=== PATIENT | female | born 1960 | race Caucasian/White ===

== ENCOUNTER 2022-12-10 14:05 | Inpatient (IN) | payer BC ==
[2022-12-10 15:17] LABS: ALBUMIN 3.2 g/dl (3.4-5.0); BILIRUBIN,TOTAL 1.1 mg/dl (0.2-1); CREATININE 0.6 mg/dl (0.55-1.3); TOT PROT 6.2 g/dl (6.4-8.2)
[2022-12-10 15:20] LABS: HEMATOCRIT 32.9 % (32.4-45.2); HEMOGLOBIN 11.4 G/dL (10.7-15.3); MCH 31.5 pg (25.7-33.7); MCHC 34.7 g/dl (32.0-36.0); MEAN CELL VOLUME 90.8 fl (80-96); MEAN PLT VOLUME 9.8 fl (7.5-11.1); PLATELET COUNT 209.5 10^3/uL (134-434); RBC 3.62 10^6/uL (3.60-5.2); RDW 14.4 % (11.6-15.6)
[2022-12-10 15:45] LABS: PLATELET ESTIMATE ADEQUATE
[2022-12-10] MEDS ORDERED: ALBUTEROL SO4 HFA INHALER IH ONE ×2 (16:23→16:27)
[2022-12-10] MEDS ORDERED: SIMETHICONE 80 MG TAB.CHEW (FP) PO ONE (16:31)
[2022-12-10] MEDS ORDERED: SODIUM CHLORIDE 0.9% 1000 ML INFUS.BAG IV ONE (16:32)
[2022-12-10] MEDS ORDERED: SIMETHICONE 80 MG TAB.CHEW (FP) ONE (16:37)
[2022-12-10 18:40] LABS: CALCIUM 8.4 mg/dl (8.5-10); CREATININE 0.5 mg/dl (0.55-1.3)
[2022-12-10] MEDS ORDERED: ACETAMINOPHEN INJECTION 100 ML IVPB ONE (20:42)
[2022-12-10] MEDS ORDERED: ACETAMINOPHEN 1000 MG/100 ML BAG IVPB ONE (20:42)
[2022-12-10 22:29] VITALS: BMI 19.5
[2022-12-11] MEDS ORDERED: SODIUM CHLORIDE 1,000 ML IV SCH ×2 (02:15→10:21)
[2022-12-11 09:01] LABS: CALCIUM 8.2 mg/dl (8.5-10); CREATININE 0.4 mg/dl (0.55-1.3)
[2022-12-11 09:36] LABS: BASO % 0.1 % (0-2.0); HEMATOCRIT 27.2 % (32.4-45.2); HEMOGLOBIN 9.4 GM/dL (10.7-15.3); LYMPH % 10.9 % (8-40); MCH 30.8 pg (25.7-33.7); MCHC 34.6 g/dl (32.0-36.0); MEAN CELL VOLUME 89.1 fl (80-96); MEAN PLT VOLUME 9.5 fl (7.5-11.1); MONO % 13.1 % (3.8-10.2); NEUT % 73.9 % (42.8-82.8); PLATELET COUNT 188 10^3/uL (134-434); RBC 3.05 M/mm3 (3.60-5.2); RDW 14.4 % (11.6-15.6); WHITE BLOOD COUNT 5.1 K/mm3 (4.0-10.0)
[2022-12-11 10:08] LABS: EPITHELIAL CELLS FEW /hpf
[2022-12-11] MEDS ORDERED: SODIUM CHLORIDE 500 ML IV STA (10:20)
[2022-12-11] MEDS ORDERED: POTASSIUM CHLORIDE TABS 10 MEQ TABLET.ER (FP) PO ONE (10:45)
[2022-12-11] MEDS: POTASSIUM CHLORIDE 40 MEQ in SODIUM CHLORIDE 1,000 ML IV SCH ×2 (10:49→22:03)
[2022-12-11] MEDS ORDERED: PEG 3350/NA SULF BICARB CL/KCL 4000 ML SOLN.RECON PO ONE (14:00)
[2022-12-11 14:30] LABS: CALCIUM 7.9 mg/dl (8.5-10); CREATININE 0.5 mg/dl (0.55-1.3)
[2022-12-12] MEDS: POTASSIUM CHLORIDE 40 MEQ in SODIUM CHLORIDE 1,000 ML IV SCH ×2 (06:20→10:46)
[2022-12-12] MEDS ORDERED: POLYETHYLENE GLYCOL (HEALTHYLAX) 3350 17 GM PACKET PO SCH (10:00)
[2022-12-12 10:03] LABS: ALBUMIN 2.9 g/dl (3.4-5.0); CALCIUM 7.9 mg/dl (8.5-10); CREATININE 0.4 mg/dl (0.55-1.3)
[2022-12-12 10:08] LABS: HEMATOCRIT 30.8 % (32.4-45.2); HEMOGLOBIN 10.8 G/dL (10.7-15.3); MCH 31.7 pg (25.7-33.7); MCHC 35.1 g/dl (32.0-36.0); MEAN CELL VOLUME 90.3 fl (80-96); MEAN PLT VOLUME 8.1 fl (7.5-11.1); PLATELET COUNT 241.2 10^3/uL (134-434); RBC 3.41 10^6/uL (3.60-5.2); RDW 15.7 % (11.6-15.6); WHITE BLOOD COUNT 5.8 10^3/uL (4.0-10.8)
[2022-12-12 11:04] LABS: PLATELET ESTIMATE ADEQUATE
[2022-12-12 19:33] VITALS: RESP 16
[2022-12-13] MEDS: POTASSIUM CHLORIDE 40 MEQ in SODIUM CHLORIDE 1,000 ML IV SCH (00:01)
[2022-12-13 10:21] VITALS: BP 113/75; PULSE 68; TEMP 98.2
== END 2022-12-13 11:14 | disposition home or self-care (01) | DRG 389 ==
LOC: FER 14:05 → FM/S 19:53 → OBSVTOIN 12-12 15:29
PROVIDERS: ADMIT Internal Medicine
DX: K56.41 Fecal impaction (principal); E87.1 Hypo-osmolality and hyponatremia; E78.5 Hyperlipidemia, unspecified; E87.6 Hypokalemia
CPT/HCPCS: 0241U-QW; 36415; 71045-TC-FY; 74177-TC; 76705-TC; 80048; 80053; 81003; 81015; 82436; 82533; 83605; 83690; 83930; 83935; 84133; 84300; 84443; 85025; 85027; 86850; 86900; 86901; 87040; 93005; 93010; 99285-25; G0378; Q9967

== ENCOUNTER 2023-01-13 13:54 | Inpatient (IN) | payer BC ==
[2023-01-13] MEDS ORDERED: SODIUM CHLORIDE 1,000 ML IV STA (14:23)
[2023-01-13] MEDS ORDERED: ACETAMINOPHEN 1000 MG/100 ML BAG IVPB ONE (14:23)
[2023-01-13] MEDS ORDERED: ACETAMINOPHEN INJECTION 100 ML IVPB ONE (15:04)
[2023-01-13 15:47] LABS: HEMOGLOBIN 11.3 G/dL (10.7-15.3); MCH 29.7 pg (25.7-33.7); MCHC 33.2 g/dl (32.0-36.0); MEAN CELL VOLUME 89.6 fl (80-96); MEAN PLT VOLUME 10.9 fl (7.5-11.1); PLATELET COUNT 180.2 10^3/uL (134-434); RDW 16.4 % (11.6-15.6); WHITE BLOOD COUNT 7.5 10^3/uL (4.0-10.8)
[2023-01-13 16:17] LABS: ALBUMIN 2.6 g/dl (3.4-5.0); BILIRUBIN,TOTAL 0.5 mg/dl (0.2-1); CALCIUM 7.8 mg/dl (8.5-10); CREATININE 0.4 mg/dl (0.55-1.3); TOT PROT 5.5 g/dl (6.4-8.2)
[2023-01-13 17:24] LABS: PLATELET ESTIMATE ADEQUATE
[2023-01-13 17:44] LABS: LACTIC ACID 2.1 mmol/L (0.4-2.0)
[2023-01-13] MEDS ORDERED: SODIUM CHLORIDE 1,000 ML IV ONE (19:36)
[2023-01-13] MEDS ORDERED: morphine CARPU-JECT 2 MG/1 ML DISP.SYRIN IVPUSH ONE (19:36)
[2023-01-13 20:15] LABS: INR 1.22 (0.83-1.09); PROTHROMBIN TIME (PATIENT) 14.1 SEC (9.7-13.0)
[2023-01-13] MEDS ORDERED: PROPOFOL 20 ML ONE (20:38)
[2023-01-13] MEDS ORDERED: ROCURONIUM BROMIDE 50 MG/5 ML SYRINGE ONE (20:39)
[2023-01-13] MEDS ORDERED: ONDANSETRON 4 MG/2 ML VIAL ONE (20:39)
[2023-01-13] MEDS ORDERED: LIDOCAINE HCL/PF 2% SDV 5ML VIAL ONE (20:39)
[2023-01-13] MEDS ORDERED: DEXAMETHASONE SOD PHOSPHATE 4 MG/1 ML VIAL ONE (20:39)
[2023-01-13] MEDS ORDERED: MIDAZOLAM HCL 2 MG/2 ML SINGLE DOSE VIAL ONE (20:39)
[2023-01-13] MEDS ORDERED: KETAMINE HCL 500 MG/10 ML VIAL ONE (20:39)
[2023-01-13] MEDS ORDERED: SEVOFLURANE 250 ML BTL ONE (20:48)
[2023-01-13] MEDS ORDERED: cefOXitin SODIUM 1 GM VIAL (RESTRICTED TO ID) IVPB ONE (21:45)
[2023-01-13] MEDS ORDERED: cefOXitin SODIUM 2 GM VIAL (RESTRICTED TO ID) IVPB ONE ×2 (21:45)
[2023-01-13] MEDS ORDERED: HYDROmorphone HCl 2 MG/ML VIAL ONE (23:21)
[2023-01-13] MEDS ORDERED: SUGAMMADEX SODIUM 200 MG/2 ML VIAL ONE (23:28)
[2023-01-14] MEDS ORDERED: ONDANSETRON 4 MG/2 ML VIAL IVPUSH PRN ×2 (00:22→00:47)
[2023-01-14] MEDS ORDERED: PROMETHAZINE HCL 25 MG/1 ML VIAL IVPB PRN ×2 (00:22→00:47)
[2023-01-14] MEDS ORDERED: LACTATED RINGERS SOLUTION 1,000 ML IV SCH (00:30)
[2023-01-14] MEDS ORDERED: HYDROmorphone *PCA* 10MG/50ML DISP.SYRIN PCA SCH (00:30)
[2023-01-14] MEDS ORDERED: FENTANYL CITRATE/PF 50 MCG/ML VIAL IVPUSH PRN (00:44)
[2023-01-14] MEDS: ACETAMINOPHEN 1000 MG/100 ML BAG IVPB SCH ×3 (01:21→16:47)
[2023-01-14] MEDS: IBUPROFEN 800 MG/8 ML IJ IVPB SCH ×3 (01:38→16:47)
[2023-01-14] MEDS: LACTATED RINGERS SOLUTION 1,000 ML IV SCH ×4 (01:50→23:44)
[2023-01-14] MEDS: PIPERACILLIN/TAZOB 2.25 GM 2.25 GM in DEXTROSE 5%-WATER - 50 ML IVPB SCH ×2 (05:36→09:27)
[2023-01-14 06:10] VITALS: BMI 18.3
[2023-01-14 09:26] LABS: HEMATOCRIT 27.8 % (32.4-45.2); HEMOGLOBIN 9.5 GM/dL (10.7-15.3); MCH 29.7 pg (25.7-33.7); MEAN CELL VOLUME 87.4 fl (80-96); PLATELET COUNT 234 10^3/uL (134-434); RBC 3.18 M/mm3 (3.60-5.2); RDW 15.6 % (11.6-15.6); WHITE BLOOD COUNT 6.7 K/mm3 (4.0-10.0)
[2023-01-14] MEDS: EZETIMIBE 10 MG TABLET (FP) PO SCH (09:27)
[2023-01-14] MEDS: HYDROmorphone *PCA* 10MG/50ML DISP.SYRIN PCA SCH (09:27)
[2023-01-14 09:56] LABS: ANISOCYTOSIS 0; HELMET CELLS 0; HOWELL-JOLLY BODIES 0; MACROCYTOSIS 0; OVALOCYTE 0; ROULEAU 0; SICKELED CELLS 0; TARGET CELLS 0; TEAR DROP CELLS 0; TOXIC GRANULATION 0
[2023-01-14 10:05] LABS: BLOOD UREA NITROGEN 16.8 mg/dL (7-18); CALCIUM 7.8 mg/dL (8.5-10.1); MAGNESIUM 1.8 mg/dL (1.8-2.4)
[2023-01-14 10:08] LABS: CREATININE 0.3 mg/dL (0.55-1.3); PHOSPHOROUS 3.3 mg/dL (2.5-4.9)
[2023-01-14] MEDS: CEFTRIAXONE 2 GM in DEXTROSE 5%-WATER 100 ML IVPB SCH (16:48)
[2023-01-14] MEDS: ATORVASTATIN CA 20 MG TABLET (FP) PO SCH (22:01)
[2023-01-15] MEDS: IBUPROFEN 800 MG/8 ML IJ IVPB SCH ×3 (01:01→16:32)
[2023-01-15] MEDS: LACTATED RINGERS SOLUTION 1,000 ML IV SCH ×4 (01:07→23:13)
[2023-01-15] MEDS: HYDROmorphone *PCA* 10MG/50ML DISP.SYRIN PCA SCH (01:08)
[2023-01-15] MEDS: ACETAMINOPHEN 1000 MG/100 ML BAG IVPB SCH ×3 (01:29→16:32)
[2023-01-15 09:20] LABS: BASO % 0.2 % (0-2.0); EOS % 0.7 % (0-4.5); HEMATOCRIT 23.6 % (32.4-45.2); LYMPH % 6.1 % (8-40); MCH 29.6 pg (25.7-33.7); MCHC 33.8 g/dl (32.0-36.0); MEAN CELL VOLUME 87.5 fl (80-96); MEAN PLT VOLUME 7.9 fl (7.5-11.1); MONO % 6.1 % (3.8-10.2); NEUT % 86.9 % (42.8-82.8); PLATELET COUNT 228 10^3/uL (134-434); RDW 15.6 % (11.6-15.6); WHITE BLOOD COUNT 6.3 K/mm3 (4.0-10.0)
[2023-01-15 09:48] LABS: BLOOD UREA NITROGEN 14.5 mg/dL (7-18); CALCIUM 7.8 mg/dL (8.5-10.1); MAGNESIUM 1.8 mg/dL (1.8-2.4)
[2023-01-15 09:52] LABS: PHOSPHOROUS 1.6 mg/dL (2.5-4.9)
[2023-01-15 09:53] LABS: CREATININE 0.3 mg/dL (0.55-1.3)
[2023-01-15] MEDS ORDERED: CEFTRIAXONE 1 GM in DEXTROSE 5%-WATER - 50 ML IVPB SCH (10:00)
[2023-01-15 10:20] LABS: ALBUMIN 1.8 g/dl (3.4-5.0); TOT PROT 4.5 g/dl (6.4-8.2)
[2023-01-15] MEDS: CEFTRIAXONE 2 GM in DEXTROSE 5%-WATER 100 ML IVPB SCH (10:20)
[2023-01-15] MEDS: EZETIMIBE 10 MG TABLET (FP) PO SCH (10:22)
[2023-01-15] MEDS ORDERED: oxyCODONE HCL 5 MG TABLET PO PRN ×2 (12:26→12:43)
[2023-01-15] MEDS: FERROUS SO4 325 MG TABLET (FP) PO SCH (12:41)
[2023-01-15] MEDS: ENOXAPARIN NA (PORCINE) 30 MG/0.3 ML DISP.SYRIN SQ SCH (12:41)
[2023-01-15] MEDS: NAPH,MB-DB/K PH,MBDB POWDER PACKET PO SCH ×2 (12:41→21:31)
[2023-01-15 19:41] LABS: EPI CELLS >36 /uL (0-25.1); HYALINE CASTS 8 /uL (0-3.1); URINE APPEARANCE CLEAR; URINE BILIRUBIN NEGATIVE (NEGATIVE); URINE COLOR DK YELLOW; URINE GLUCOSE (UA) NEGATIVE (NEGATIVE); URINE KETONE TRACE (NEGATIVE); URINE LEUK ESTERASE NEGATIVE (NEGATIVE); URINE NITRITE POSITIVE (NEGATIVE); URINE PROTEIN 2+ (NEGATIVE); URINE RBC 93 /uL (0-23.9)
[2023-01-15 19:55] LABS: URINE BACTERIA 6.6 /uL (0-1359); URINE WBC 58.1 /uL (0-25.8)
[2023-01-15 20:33] LABS: HEMATOCRIT 25.3 % (32.4-45.2); HEMOGLOBIN 8.5 GM/dL (10.7-15.3); MCH 29.7 pg (25.7-33.7); MCHC 33.5 g/dl (32.0-36.0); MEAN CELL VOLUME 88.7 fl (80-96); MEAN PLT VOLUME 8.9 fl (7.5-11.1); PLATELET COUNT 238 10^3/uL (134-434); RBC 2.86 M/mm3 (3.60-5.2); RDW 15.9 % (11.6-15.6); WHITE BLOOD COUNT 7.1 K/mm3 (4.0-10.0)
[2023-01-15] MEDS: ATORVASTATIN CA 20 MG TABLET (FP) PO SCH (21:31)
[2023-01-16] MEDS: oxyCODONE HCL 5 MG TABLET PO PRN ×2 (02:57→23:33)
[2023-01-16] MEDS: LACTATED RINGERS SOLUTION 1,000 ML IV SCH (03:04)
[2023-01-16] MEDS ORDERED: POLYETHYLENE GLYCOL (HEALTHYLAX) 3350 17 GM PACKET PO SCH (08:00)
[2023-01-16 08:09] LABS: CARCINOEMBRYONIC ANTIGEN 1.8 ng/mL (0.0-4.7)
[2023-01-16] MEDS: FAMOTIDINE 20 MG TABLET PO SCH (09:24)
[2023-01-16] MEDS: NAPH,MB-DB/K PH,MBDB POWDER PACKET PO SCH ×2 (09:24→22:56)
[2023-01-16] MEDS: EZETIMIBE 10 MG TABLET (FP) PO SCH (09:24)
[2023-01-16] MEDS: ENOXAPARIN NA (PORCINE) 30 MG/0.3 ML DISP.SYRIN SQ SCH (09:24)
[2023-01-16] MEDS: FERROUS SO4 325 MG TABLET (FP) PO SCH (09:24)
[2023-01-16] MEDS: CEFTRIAXONE 2 GM in DEXTROSE 5%-WATER 100 ML IVPB SCH (09:25)
[2023-01-16 10:10] LABS: BASO % 0.4 % (0-2.0); EOS % 0.6 % (0-4.5); HEMATOCRIT 25.9 % (32.4-45.2); HEMOGLOBIN 8.9 GM/dL (10.7-15.3); LYMPH % 6.4 % (8-40); MCH 30.1 pg (25.7-33.7); MCHC 34.4 g/dl (32.0-36.0); MEAN CELL VOLUME 87.3 fl (80-96); MEAN PLT VOLUME 7.4 fl (7.5-11.1); MONO % 4.7 % (3.8-10.2); NEUT % 87.9 % (42.8-82.8); PLATELET COUNT 276 10^3/uL (134-434); RBC 2.97 M/mm3 (3.60-5.2); RDW 15.8 % (11.6-15.6)
[2023-01-16 10:43] LABS: BLOOD UREA NITROGEN 10.7 mg/dL (7-18); CALCIUM 7.9 mg/dL (8.5-10.1); CREATININE 0.4 mg/dL (0.55-1.3); MAGNESIUM 1.6 mg/dL (1.8-2.4); PHOSPHOROUS 1.8 mg/dL (2.5-4.9)
[2023-01-16] MEDS: ERTAPENEM SODIUM 1 GM in SODIUM CHLORIDE 50 ML IVPB SCH (14:52)
[2023-01-16] MEDS: ATORVASTATIN CA 20 MG TABLET (FP) PO SCH (22:56)
[2023-01-16] MEDS: MAGNESIUM OXIDE 400 MG TABLET (FP) PO SCH (22:57)
[2023-01-17 01:19] LABS: EPI CELLS 28 /uL (0-25.1); HYALINE CASTS 3 /uL (0-3.1); URINE APPEARANCE CLEAR; URINE BILIRUBIN NEGATIVE (NEGATIVE); URINE COLOR DK YELLOW; URINE GLUCOSE (UA) NEGATIVE (NEGATIVE); URINE KETONE TRACE (NEGATIVE); URINE LEUK ESTERASE NEGATIVE (NEGATIVE); URINE NITRITE POSITIVE (NEGATIVE); URINE PROTEIN 1+ (NEGATIVE); URINE WBC 24 /uL (0-25.8)
[2023-01-17 09:33] LABS: HEMOGLOBIN 8.8 GM/dL (10.7-15.3); MCH 30.7 pg (25.7-33.7); MCHC 35.3 g/dl (32.0-36.0); MEAN PLT VOLUME 7.9 fl (7.5-11.1); PLATELET COUNT 310 10^3/uL (134-434); RBC 2.87 M/mm3 (3.60-5.2); RDW 15.9 % (11.6-15.6); WHITE BLOOD COUNT 5.8 K/mm3 (4.0-10.0)
[2023-01-17] MEDS: ENOXAPARIN NA (PORCINE) 30 MG/0.3 ML DISP.SYRIN SQ SCH (09:35)
[2023-01-17] MEDS: FAMOTIDINE 20 MG TABLET PO SCH (09:35)
[2023-01-17] MEDS: ACETAMINOPHEN 500 MG TABLET (FP) PO SCH ×2 (09:35→16:16)
[2023-01-17] MEDS: EZETIMIBE 10 MG TABLET (FP) PO SCH (09:36)
[2023-01-17] MEDS: FERROUS SO4 325 MG TABLET (FP) PO SCH (09:36)
[2023-01-17] MEDS: MAGNESIUM OXIDE 400 MG TABLET (FP) PO SCH ×2 (09:36→21:45)
[2023-01-17 09:43] LABS: ALBUMIN 1.9 g/dl (3.4-5.0); CALCIUM 7.7 mg/dL (8.5-10.1); MAGNESIUM 1.8 mg/dL (1.8-2.4)
[2023-01-17 09:45] LABS: BLOOD UREA NITROGEN 9.4 mg/dL (7-18)
[2023-01-17 09:47] LABS: CREATININE 0.3 mg/dL (0.55-1.3); PHOSPHOROUS 1.9 mg/dL (2.5-4.9)
[2023-01-17 09:49] LABS: BILIRUBIN,TOTAL 0.6 mg/dL (0.2-1); TOT PROT 4.9 g/dl (6.4-8.2)
[2023-01-17] MEDS: ERTAPENEM SODIUM 1 GM in SODIUM CHLORIDE 50 ML IVPB SCH (11:34)
[2023-01-17] MEDS: IBUPROFEN 400 MG TABLET (FP) PO SCH ×2 (11:38→17:44)
[2023-01-17] MEDS: oxyCODONE HCL 5 MG TABLET PO PRN (21:44)
[2023-01-17] MEDS: ATORVASTATIN CA 20 MG TABLET (FP) PO SCH (21:45)
[2023-01-17] MEDS: NAPH,MB-DB/K PH,MBDB POWDER PACKET PO SCH (21:46)
[2023-01-18] MEDS: ACETAMINOPHEN 500 MG TABLET (FP) PO SCH ×3 (00:38→17:10)
[2023-01-18] MEDS: IBUPROFEN 400 MG TABLET (FP) PO SCH ×3 (02:39→17:58)
[2023-01-18 08:58] LABS: CALCIUM 7.6 mg/dL (8.5-10.1)
[2023-01-18 09:00] LABS: BLOOD UREA NITROGEN 14.1 mg/dL (7-18); MAGNESIUM 1.8 mg/dL (1.8-2.4)
[2023-01-18] MEDS ORDERED: DEXAMETHASONE SOD PHOSPHATE 4 MG/1 ML VIAL ONE (09:00)
[2023-01-18 09:04] LABS: CREATININE 0.3 mg/dL (0.55-1.3); PHOSPHOROUS 2.3 mg/dL (2.5-4.9)
[2023-01-18] MEDS: FAMOTIDINE 20 MG TABLET PO SCH (09:07)
[2023-01-18] MEDS: ENOXAPARIN NA (PORCINE) 30 MG/0.3 ML DISP.SYRIN SQ SCH (09:07)
[2023-01-18] MEDS: NAPH,MB-DB/K PH,MBDB POWDER PACKET PO SCH ×2 (09:07→21:31)
[2023-01-18] MEDS: MAGNESIUM OXIDE 400 MG TABLET (FP) PO SCH (09:07)
[2023-01-18] MEDS: EZETIMIBE 10 MG TABLET (FP) PO SCH (09:07)
[2023-01-18] MEDS: FERROUS SO4 325 MG TABLET (FP) PO SCH (09:07)
[2023-01-18] MEDS: ERTAPENEM SODIUM 1 GM in SODIUM CHLORIDE 50 ML IVPB SCH (09:07)
[2023-01-18] MEDS ORDERED: ONDANSETRON 4 MG/2 ML VIAL ONE (09:08)
[2023-01-18] MEDS ORDERED: SUCCINYLCHOLINE CHLORIDE 200 MG/10 ML SYRINGE ONE (09:08)
[2023-01-18] MEDS ORDERED: ROCURONIUM BROMIDE 50 MG/5 ML SYRINGE ONE (09:08)
[2023-01-18] MEDS ORDERED: CLINDAMYCIN 600MG PREMIX IVPB 600 MG/50 ML BAG IVPB ONE (09:09)
[2023-01-18] MEDS ORDERED: LIDOCAINE HCL/PF 2% SDV 5ML VIAL ONE (09:09)
[2023-01-18] MEDS ORDERED: PROPOFOL 40 ML ONE (09:10)
[2023-01-18] MEDS: ATORVASTATIN CA 20 MG TABLET (FP) PO SCH (21:31)
[2023-01-18] MEDS: oxyCODONE HCL 5 MG TABLET PO PRN (21:32)
[2023-01-19] MEDS: ACETAMINOPHEN 500 MG TABLET (FP) PO SCH (01:00)
[2023-01-19] MEDS: IBUPROFEN 400 MG TABLET (FP) PO SCH (03:13)
[2023-01-19] MEDS: ERTAPENEM SODIUM 1 GM in SODIUM CHLORIDE 50 ML IVPB SCH (10:16)
[2023-01-19] MEDS: EZETIMIBE 10 MG TABLET (FP) PO SCH (10:24)
[2023-01-19] MEDS: NAPH,MB-DB/K PH,MBDB POWDER PACKET PO SCH (10:24)
[2023-01-19] MEDS: FAMOTIDINE 20 MG TABLET PO SCH (10:24)
[2023-01-19] MEDS: FERROUS SO4 325 MG TABLET (FP) PO SCH (10:25)
[2023-01-19] MEDS: ENOXAPARIN NA (PORCINE) 30 MG/0.3 ML DISP.SYRIN SQ SCH (10:25)
[2023-01-19] MEDS: ACETAMINOPHEN 325 MG TABLET (FP) PO PRN (20:09)
[2023-01-19] MEDS: ATORVASTATIN CA 20 MG TABLET (FP) PO SCH (21:18)
[2023-01-20] MEDS ORDERED: morphine CARPU-JECT 2 MG/1 ML DISP.SYRIN IVPUSH ONE (05:14)
[2023-01-20] MEDS ORDERED: oxyCODONE HCL 5 MG TABLET PO ONE (05:18)
[2023-01-20 08:43] LABS: BASO % 0.6 % (0-2.0); EOS % 1.3 % (0-4.5); HEMATOCRIT 26.5 % (32.4-45.2); HEMOGLOBIN 9.1 GM/dL (10.7-15.3); LYMPH % 7.4 % (8-40); MCH 29.7 pg (25.7-33.7); MCHC 34.5 g/dl (32.0-36.0); MEAN PLT VOLUME 7.1 fl (7.5-11.1); MONO % 5.2 % (3.8-10.2); NEUT % 85.5 % (42.8-82.8); PLATELET COUNT 503 10^3/uL (134-434); RBC 3.08 M/mm3 (3.60-5.2); RDW 16.3 % (11.6-15.6); WHITE BLOOD COUNT 9.8 K/mm3 (4.0-10.0)
[2023-01-20 09:13] LABS: TOT PROT 5.2 g/dl (6.4-8.2)
[2023-01-20 09:14] LABS: BLOOD UREA NITROGEN 10.6 mg/dL (7-18); CREATININE 0.3 mg/dL (0.55-1.3); MAGNESIUM 1.7 mg/dL (1.8-2.4)
[2023-01-20 09:16] LABS: BILIRUBIN,TOTAL 0.3 mg/dL (0.2-1); CALCIUM 8.1 mg/dL (8.5-10.1)
[2023-01-20] MEDS: ENOXAPARIN NA (PORCINE) 30 MG/0.3 ML DISP.SYRIN SQ SCH (10:30)
[2023-01-20] MEDS: ERTAPENEM SODIUM 1 GM in SODIUM CHLORIDE 50 ML IVPB SCH (11:00)
[2023-01-20] MEDS: FAMOTIDINE 20 MG TABLET PO SCH (13:37)
[2023-01-20] MEDS: FERROUS SO4 325 MG TABLET (FP) PO SCH (13:37)
[2023-01-20] MEDS: EZETIMIBE 10 MG TABLET (FP) PO SCH (13:37)
[2023-01-20] MEDS: MAGNESIUM OXIDE 400 MG TABLET (FP) PO SCH (22:05)
[2023-01-20] MEDS: ATORVASTATIN CA 20 MG TABLET (FP) PO SCH (22:06)
[2023-01-21] MEDS: ACETAMINOPHEN 325 MG TABLET (FP) PO PRN ×2 (00:58→22:30)
[2023-01-21 10:36] LABS: BASO % 0.3 % (0-2.0); EOS % 0.8 % (0-4.5); HEMATOCRIT 25.9 % (32.4-45.2); HEMOGLOBIN 8.9 GM/dL (10.7-15.3); LYMPH % 7.3 % (8-40); MCH 29.8 pg (25.7-33.7); MCHC 34.2 g/dl (32.0-36.0); MEAN CELL VOLUME 86.9 fl (80-96); MEAN PLT VOLUME 7.2 fl (7.5-11.1); NEUT % 86.6 % (42.8-82.8); PLATELET COUNT 566 10^3/uL (134-434); RBC 2.98 M/mm3 (3.60-5.2); RDW 16.5 % (11.6-15.6); WHITE BLOOD COUNT 9.9 K/mm3 (4.0-10.0)
[2023-01-21] MEDS: ERTAPENEM SODIUM 1 GM in SODIUM CHLORIDE 50 ML IVPB SCH (10:40)
[2023-01-21] MEDS: FAMOTIDINE 20 MG TABLET PO SCH (10:51)
[2023-01-21] MEDS: FERROUS SO4 325 MG TABLET (FP) PO SCH (10:52)
[2023-01-21] MEDS: MAGNESIUM OXIDE 400 MG TABLET (FP) PO SCH (10:52)
[2023-01-21] MEDS: EZETIMIBE 10 MG TABLET (FP) PO SCH (10:52)
[2023-01-21] MEDS: ENOXAPARIN NA (PORCINE) 30 MG/0.3 ML DISP.SYRIN SQ SCH (10:56)
[2023-01-21 10:57] LABS: BLOOD UREA NITROGEN 12.7 mg/dL (7-18)
[2023-01-21 10:58] LABS: ALBUMIN 2.1 g/dl (3.4-5.0); CALCIUM 8.5 mg/dL (8.5-10.1)
[2023-01-21 10:59] LABS: MAGNESIUM 1.8 mg/dL (1.8-2.4)
[2023-01-21 11:00] LABS: CREATININE 0.4 mg/dL (0.55-1.3)
[2023-01-21 11:02] LABS: BILIRUBIN,TOTAL 0.4 mg/dL (0.2-1); TOT PROT 5.5 g/dl (6.4-8.2)
[2023-01-21 11:14] LABS: ERYTHROCYTE SEDIMENTATION RATE 87 mm/hr (0-30)
[2023-01-21] MEDS ORDERED: NAPH,MB-DB/K PH,MBDB POWDER PACKET PO ONE (15:18)
[2023-01-21] MEDS: ATORVASTATIN CA 20 MG TABLET (FP) PO SCH (22:29)
[2023-01-22 08:57] LABS: CALCIUM 8.2 mg/dL (8.5-10.1)
[2023-01-22 08:58] LABS: BLOOD UREA NITROGEN 10.3 mg/dL (7-18); MAGNESIUM 1.8 mg/dL (1.8-2.4)
[2023-01-22 09:01] LABS: CREATININE 0.4 mg/dL (0.55-1.3); PHOSPHOROUS 3.4 mg/dL (2.5-4.9)
[2023-01-22 09:03] LABS: BILIRUBIN,TOTAL 0.3 mg/dL (0.2-1); TOT PROT 5.2 g/dl (6.4-8.2)
[2023-01-22 09:04] LABS: HEMATOCRIT 24.9 % (32.4-45.2); HEMOGLOBIN 8.6 GM/dL (10.7-15.3); MCH 29.7 pg (25.7-33.7); MCHC 34.5 g/dl (32.0-36.0); MEAN CELL VOLUME 86.1 fl (80-96); MEAN PLT VOLUME 7.6 fl (7.5-11.1); PLATELET COUNT 553 10^3/uL (134-434); RBC 2.89 M/mm3 (3.60-5.2); RDW 16.2 % (11.6-15.6); WHITE BLOOD COUNT 8.3 K/mm3 (4.0-10.0)
[2023-01-22] MEDS: ENOXAPARIN NA (PORCINE) 30 MG/0.3 ML DISP.SYRIN SQ SCH (10:22)
[2023-01-22] MEDS: EZETIMIBE 10 MG TABLET (FP) PO SCH (10:23)
[2023-01-22] MEDS: FAMOTIDINE 20 MG TABLET PO SCH (10:23)
[2023-01-22] MEDS: FERROUS SO4 325 MG TABLET (FP) PO SCH (10:23)
[2023-01-22] MEDS: ERTAPENEM SODIUM 1 GM in SODIUM CHLORIDE 50 ML IVPB SCH (10:25)
[2023-01-22] MEDS: ATORVASTATIN CA 20 MG TABLET (FP) PO SCH (21:28)
[2023-01-23] MEDS: FAMOTIDINE 20 MG TABLET PO SCH (09:13)
[2023-01-23] MEDS: FERROUS SO4 325 MG TABLET (FP) PO SCH (09:13)
[2023-01-23] MEDS: EZETIMIBE 10 MG TABLET (FP) PO SCH (09:13)
[2023-01-23] MEDS: ENOXAPARIN NA (PORCINE) 30 MG/0.3 ML DISP.SYRIN SQ SCH (09:14)
[2023-01-23] MEDS: ERTAPENEM SODIUM 1 GM in SODIUM CHLORIDE 50 ML IVPB SCH (09:14)
[2023-01-23] MEDS: ACETAMINOPHEN 325 MG TABLET (FP) PO PRN (18:43)
[2023-01-23] MEDS: ATORVASTATIN CA 20 MG TABLET (FP) PO SCH (21:20)
[2023-01-24] MEDS: FAMOTIDINE 20 MG TABLET PO SCH (09:09)
[2023-01-24] MEDS: ENOXAPARIN NA (PORCINE) 30 MG/0.3 ML DISP.SYRIN SQ SCH (09:09)
[2023-01-24] MEDS: EZETIMIBE 10 MG TABLET (FP) PO SCH (09:09)
[2023-01-24] MEDS: FERROUS SO4 325 MG TABLET (FP) PO SCH (09:09)
[2023-01-24] MEDS: ERTAPENEM SODIUM 1 GM in SODIUM CHLORIDE 50 ML IVPB SCH (12:18)
[2023-01-24] MEDS: ATORVASTATIN CA 20 MG TABLET (FP) PO SCH (21:23)
[2023-01-25 06:13] VITALS: PULSE 80; RESP 20
[2023-01-25] MEDS: ERTAPENEM SODIUM 1 GM in SODIUM CHLORIDE 50 ML IVPB SCH (09:56)
[2023-01-25] MEDS: ENOXAPARIN NA (PORCINE) 30 MG/0.3 ML DISP.SYRIN SQ SCH (09:56)
[2023-01-25] MEDS: FAMOTIDINE 20 MG TABLET PO SCH (09:57)
[2023-01-25] MEDS: FERROUS SO4 325 MG TABLET (FP) PO SCH (09:57)
[2023-01-25] MEDS: EZETIMIBE 10 MG TABLET (FP) PO SCH (09:57)
[2023-01-25 10:38] VITALS: BP 99/58; TEMP 98.4
== END 2023-01-25 12:58 | disposition home or self-care (01) | DRG 329 ==
LOC: FER 13:54 → J6S 23:00
PROVIDERS: ADMIT Internal Medicine; ATTEND Internal Medicine
PROC: 0DNF0ZZ Release Right Large Intestine, Open Approach (ICD-10-PCS; 2023-01-13)
PROC: 0DBB8ZX Excision of Ileum, Via Natural or Artificial Opening Endoscopic, Diagnostic (ICD-10-PCS; 2023-01-13)
PROC: 0D1B0Z4 Bypass Ileum to Cutaneous, Open Approach (ICD-10-PCS; principal; 2023-01-13 09:00)
DX: K63.1 Perforation of intestine (nontraumatic) (principal); J18.9 Pneumonia, unspecified organism; E87.1 Hypo-osmolality and hyponatremia; I31.39 Other pericardial effusion (noninflammatory); K66.8 Other specified disorders of peritoneum; E78.5 Hyperlipidemia, unspecified; D64.9 Anemia, unspecified; E88.09 Other disorders of plasma-protein metabolism, not elsewhere classified; K76.0 Fatty (change of) liver, not elsewhere classified; K59.00 Constipation, unspecified; Z88.0 Allergy status to penicillin; E87.6 Hypokalemia; D75.839 Thrombocytosis, unspecified
CPT/HCPCS: 0241U-QW; 36415; 74018-TC-FY; 74177-TC; 80048; 80053; 81003; 82105; 82378; 83605; 83690; 83735; 84100; 85025; 85027; 85610; 85651; 86140; 86301; 86304; 86850; 86900; 86901; 87070; 87075; 87186; 87205; 87324; 87449; 88307-TC; 94010; 94760; 97116-GP; 97162-GP; 99291; Q9967

== ENCOUNTER 2023-06-18 04:47 | Day surgery (SDC) | payer BC ==
[2023-06-18 08:59] VITALS: BMI 18.4
[2023-06-18 10:38] VITALS: TEMP 97
[2023-06-18 12:19] VITALS: BP 108/56
[2023-06-18 13:44] VITALS: PULSE 68; RESP 20
== END 2023-06-18 11:15 | disposition home or self-care (01) ==
LOC: JASU-ENDO 04:47
PROVIDERS: ATTEND Student in an Organized Health Care Education/Training Program
PROC: 0DJD8ZZ Inspection of Lower Intestinal Tract, Via Natural or Artificial Opening Endoscopic (ICD-10-PCS; principal; 2023-06-18 09:45)
DX: Z87.19 Personal history of other diseases of the digestive system (principal); Z93.2 Ileostomy status

== ENCOUNTER 2023-07-08 08:00 | Inpatient (IN) | payer BC ==
[2023-07-13 14:34] VITALS: BMI 19.0
[2023-07-16] MEDS ORDERED: cefOXitin SODIUM 2 GM VIAL (RESTRICTED TO ID) IVPB ONE ×2 (07:30→08:28)
[2023-07-16] MEDS ORDERED: GABAPENTIN 300 MG CAPSULE PO ONE (07:30)
[2023-07-16] MEDS ORDERED: SCOPOLAMINE HYDROBROMIDE 1 PATCH PATCH.TD72 TD ONE (07:30)
[2023-07-16] MEDS ORDERED: ACETAMINOPHEN 1000 MG/100 ML BAG IVPB ONE (07:30)
[2023-07-16] MEDS ORDERED: PROPOFOL 20 ML ONE (07:53)
[2023-07-16] MEDS ORDERED: LIDOCAINE HCL/PF 2% SDV 5ML VIAL ONE (07:53)
[2023-07-16] MEDS ORDERED: MIDAZOLAM HCL 2 MG/2 ML SINGLE DOSE VIAL ONE (07:53)
[2023-07-16] MEDS ORDERED: ROCURONIUM BROMIDE 50 MG/5 ML SYRINGE ONE ×3 (08:21→12:00)
[2023-07-16] MEDS ORDERED: ONDANSETRON 4 MG/2 ML VIAL ONE ×2 (09:33→11:49)
[2023-07-16] MEDS ORDERED: DEXAMETHASONE SOD PHOSPHATE 4 MG/1 ML VIAL ONE ×2 (09:33→11:49)
[2023-07-16] MEDS ORDERED: SUGAMMADEX SODIUM 200 MG/2 ML VIAL ONE (11:13)
[2023-07-16] MEDS ORDERED: KETOROLAC TROMETHAMINE 30 MG/1 ML VIAL ONE (13:09)
[2023-07-16] MEDS ORDERED: POVIDONE-IODINE OINTMENT 10% - 28.4 GM TUBE TP ONE (14:16)
[2023-07-16] MEDS ORDERED: ONDANSETRON 4 MG/2 ML VIAL IVPUSH PRN (14:43)
[2023-07-16] MEDS ORDERED: LACTATED RINGERS SOLUTION 1,000 ML IV SCH (14:45)
[2023-07-16] MEDS: HYDROmorphone *PCA* 10MG/50ML DISP.SYRIN PCA SCH ×2 (15:00→15:20)
[2023-07-16] MEDS ORDERED: ACETAMINOPHEN INJECTION 100 ML IVPB ONE (15:32)
[2023-07-16] MEDS: ACETAMINOPHEN 1000 MG/100 ML BAG IVPB SCH ×3 (15:35→21:41)
[2023-07-16] MEDS: CEFOXITIN SODIUM 1 GM in DEXTROSE 5%-WATER - 100 ML IVPB SCH ×2 (15:55→18:15)
[2023-07-16] MEDS: SODIUM CHLORIDE 1,000 ML IV SCH (16:06)
[2023-07-16] MEDS: ATORVASTATIN CA 20 MG TABLET (FP) PO SCH (22:43)
[2023-07-16] MEDS: EZETIMIBE 10 MG TABLET (FP) PO SCH (22:43)
[2023-07-17] MEDS: CEFOXITIN SODIUM 1 GM in DEXTROSE 5%-WATER 100 ML IVPB SCH ×2 (01:13→08:52)
[2023-07-17] MEDS: ACETAMINOPHEN 1000 MG/100 ML BAG IVPB SCH ×4 (04:38→20:51)
[2023-07-17] MEDS: HEPARIN NA (PORCINE) 5,000 UNITS/ML 1ML VIAL SQ SCH ×2 (09:28→17:57)
[2023-07-17 09:32] LABS: BASO % 0.3 % (0-2.0); HEMATOCRIT 33.7 % (32.4-45.2); HEMOGLOBIN 11.2 GM/dL (10.7-15.3); LYMPH % 6.3 % (8-40); MCH 29.4 pg (25.7-33.7); MCHC 33.2 g/dl (32.0-36.0); MEAN CELL VOLUME 88.5 fl (80-96); MEAN PLT VOLUME 8.9 fl (7.5-11.1); MONO % 6.4 % (3.8-10.2); PLATELET COUNT 208 10^3/uL (134-434); RBC 3.81 M/mm3 (3.60-5.2); RDW 17.1 % (11.6-15.6); WHITE BLOOD COUNT 8.3 K/mm3 (4.0-10.0)
[2023-07-17 09:58] LABS: POTASSIUM 4.4 mmol/L (3.5-5.1)
[2023-07-17 10:09] LABS: ALBUMIN 2.8 g/dl (3.4-5.0); BLOOD UREA NITROGEN 16.8 mg/dL (7-18)
[2023-07-17 10:12] LABS: CREATININE 0.7 mg/dL (0.55-1.3)
[2023-07-17 10:13] LABS: TOT PROT 5.8 g/dl (6.4-8.2)
[2023-07-17 10:15] LABS: BILIRUBIN,TOTAL 1.2 mg/dL (0.2-1)
[2023-07-17] MEDS: HYDROmorphone *PCA* 10MG/50ML DISP.SYRIN PCA SCH (16:56)
[2023-07-17] MEDS: SODIUM CHLORIDE 1,000 ML IV SCH (16:57)
[2023-07-18] MEDS: HEPARIN NA (PORCINE) 5,000 UNITS/ML 1ML VIAL SQ SCH ×3 (02:31→17:31)
[2023-07-18 09:14] LABS: BASO % 0.3 % (0-2.0); EOS % 0.1 % (0-4.5); HEMATOCRIT 31.1 % (32.4-45.2); HEMOGLOBIN 10.3 GM/dL (10.7-15.3); LYMPH % 3.8 % (8-40); MCH 29.4 pg (25.7-33.7); MEAN CELL VOLUME 89.2 fl (80-96); MEAN PLT VOLUME 9.2 fl (7.5-11.1); NEUT % 90.8 % (42.8-82.8); PLATELET COUNT 179 10^3/uL (134-434); RBC 3.49 M/mm3 (3.60-5.2); RDW 16.8 % (11.6-15.6); WHITE BLOOD COUNT 9.7 K/mm3 (4.0-10.0)
[2023-07-18] MEDS ORDERED: TAMSULOSIN HCL 0.4 MG CAP PO ONE (09:35)
[2023-07-18 09:38] LABS: POTASSIUM 3.8 mmol/L (3.5-5.1)
[2023-07-18 09:48] LABS: BLOOD UREA NITROGEN 10.6 mg/dL (7-18)
[2023-07-18 09:49] LABS: ALBUMIN 2.4 g/dl (3.4-5.0); MAGNESIUM 1.9 mg/dL (1.8-2.4)
[2023-07-18 09:51] LABS: TOT PROT 5.4 g/dl (6.4-8.2)
[2023-07-18 09:52] LABS: CREATININE 0.4 mg/dL (0.55-1.3)
[2023-07-18] MEDS ORDERED: PIPERACILLIN/TAZOB 3.375 GM 3.375 GM in DEXTROSE 5%-WATER - 50 ML IVPB SCH (11:30)
[2023-07-18] MEDS: HYDROmorphone *PCA* 10MG/50ML DISP.SYRIN PCA SCH (14:26)
[2023-07-18] MEDS: SODIUM CHLORIDE 1,000 ML IV SCH (14:51)
[2023-07-18] MEDS: VANCOMYCIN/WATER FOR INJ (PEG) 1,000 MG/200 ML BAG IVPB SCH (17:31)
[2023-07-18] MEDS: CEFOXITIN SODIUM 1 GM in DEXTROSE 5%-WATER 100 ML IVPB SCH (21:30)
[2023-07-19] MEDS: HEPARIN NA (PORCINE) 5,000 UNITS/ML 1ML VIAL SQ SCH ×3 (01:35→22:38)
[2023-07-19] MEDS: CEFOXITIN SODIUM 1 GM in DEXTROSE 5%-WATER 100 ML IVPB SCH ×4 (03:32→20:42)
[2023-07-19] MEDS: VANCOMYCIN/WATER FOR INJ (PEG) 1,000 MG/200 ML BAG IVPB SCH ×2 (04:31→17:27)
[2023-07-19] MEDS: KETOROLAC TROMETHAMINE 15 MG/ML VIAL IVPUSH SCH ×3 (09:08→20:43)
[2023-07-19 10:18] LABS: HEMATOCRIT 27.2 % (32.4-45.2); HEMOGLOBIN 9.3 GM/dL (10.7-15.3); MCH 29.7 pg (25.7-33.7); MEAN CELL VOLUME 87.2 fl (80-96); MEAN PLT VOLUME 8.3 fl (7.5-11.1); PLATELET COUNT 186 10^3/uL (134-434); RBC 3.12 M/mm3 (3.60-5.2); RDW 16.4 % (11.6-15.6)
[2023-07-19 10:39] LABS: POTASSIUM 3.1 mmol/L (3.5-5.1)
[2023-07-19 10:47] LABS: BLOOD UREA NITROGEN 11.8 mg/dL (7-18); CALCIUM 7.7 mg/dL (8.5-10.1); CREATININE 0.4 mg/dL (0.55-1.3); MAGNESIUM 1.9 mg/dL (1.8-2.4)
[2023-07-19 10:48] LABS: BILIRUBIN,TOTAL 0.8 mg/dL (0.2-1)
[2023-07-19 11:46] LABS: ANISOCYTOSIS 0; MACROCYTOSIS 0
[2023-07-19] MEDS: ACETAMINOPHEN 1000 MG/100 ML BAG IVPB SCH ×2 (12:28→18:43)
[2023-07-19] MEDS: KCL 10 MEQ IVPB 10 MEQ/100 ML INFUS.BAG IVPB SCH ×3 (13:43→15:56)
[2023-07-19] MEDS: SODIUM CHLORIDE 1,000 ML IV SCH ×2 (15:50→18:50)
[2023-07-19] MEDS: ATORVASTATIN CA 20 MG TABLET (FP) PO SCH (22:37)
[2023-07-19] MEDS: EZETIMIBE 10 MG TABLET (FP) PO SCH (22:37)
[2023-07-20] MEDS: ACETAMINOPHEN 1000 MG/100 ML BAG IVPB SCH ×2 (01:24→07:25)
[2023-07-20] MEDS: CEFOXITIN SODIUM 1 GM in DEXTROSE 5%-WATER 100 ML IVPB SCH ×3 (04:11→14:31)
[2023-07-20] MEDS: KETOROLAC TROMETHAMINE 15 MG/ML VIAL IVPUSH SCH ×3 (04:11→15:16)
[2023-07-20] MEDS: VANCOMYCIN/WATER FOR INJ (PEG) 1,000 MG/200 ML BAG IVPB SCH ×2 (07:25→17:05)
[2023-07-20] MEDS: TAMSULOSIN HCL 0.4 MG CAP PO SCH (09:30)
[2023-07-20] MEDS: HEPARIN NA (PORCINE) 5,000 UNITS/ML 1ML VIAL SQ SCH ×2 (09:32→21:39)
[2023-07-20] MEDS: SODIUM CHLORIDE 1,000 ML IV SCH ×2 (09:33→17:06)
[2023-07-20 10:06] LABS: HEMATOCRIT 31.7 % (32.4-45.2); HEMOGLOBIN 10.8 GM/dL (10.7-15.3); MCH 30.1 pg (25.7-33.7); MCHC 34.1 g/dl (32.0-36.0); MEAN CELL VOLUME 88.1 fl (80-96); MEAN PLT VOLUME 8.5 fl (7.5-11.1); PLATELET COUNT 252 10^3/uL (134-434); RBC 3.59 M/mm3 (3.60-5.2); RDW 16.5 % (11.6-15.6); WHITE BLOOD COUNT 8.5 K/mm3 (4.0-10.0)
[2023-07-20 10:31] LABS: POTASSIUM 3.5 mmol/L (3.5-5.1)
[2023-07-20 10:36] LABS: ANISOCYTOSIS 0; HELMET CELLS 0; HOWELL-JOLLY BODIES 0; MACROCYTOSIS 0; OVALOCYTE 0; ROULEAU 0; SICKELED CELLS 0; TARGET CELLS 0; TEAR DROP CELLS 0; TOXIC GRANULATION 0
[2023-07-20 10:38] LABS: CALCIUM 8.5 mg/dL (8.5-10.1)
[2023-07-20 10:39] LABS: BLOOD UREA NITROGEN 17.9 mg/dL (7-18); MAGNESIUM 2.2 mg/dL (1.8-2.4)
[2023-07-20 10:42] LABS: CREATININE 0.5 mg/dL (0.55-1.3)
[2023-07-20 10:43] LABS: TOT PROT 6.1 g/dl (6.4-8.2)
[2023-07-20 10:44] LABS: ALBUMIN 2.5 g/dl (3.4-5.0); BILIRUBIN,TOTAL 0.8 mg/dL (0.2-1)
[2023-07-20] MEDS: ACETAMINOPHEN 500 MG TABLET (FP) PO SCH ×2 (11:10→18:46)
[2023-07-20] MEDS ORDERED: ONDANSETRON 4 MG/2 ML VIAL IVPUSH ONE ×2 (11:26→20:12)
[2023-07-20] MEDS: EZETIMIBE 10 MG TABLET (FP) PO SCH (21:41)
[2023-07-20] MEDS: ATORVASTATIN CA 20 MG TABLET (FP) PO SCH (21:41)
[2023-07-21] MEDS: SODIUM CHLORIDE 1,000 ML IV SCH (02:56)
[2023-07-21] MEDS: ACETAMINOPHEN 500 MG TABLET (FP) PO SCH ×3 (04:46→19:07)
[2023-07-21 09:04] LABS: HEMATOCRIT 25.9 % (32.4-45.2); HEMOGLOBIN 8.9 GM/dL (10.7-15.3); MCH 30.5 pg (25.7-33.7); MCHC 34.3 g/dl (32.0-36.0); MEAN PLT VOLUME 8.3 fl (7.5-11.1); PLATELET COUNT 227 10^3/uL (134-434); RBC 2.91 M/mm3 (3.60-5.2); RDW 16.5 % (11.6-15.6); WHITE BLOOD COUNT 8.5 K/mm3 (4.0-10.0)
[2023-07-21 09:30] LABS: POTASSIUM 3.3 mmol/L (3.5-5.1)
[2023-07-21] MEDS: TAMSULOSIN HCL 0.4 MG CAP PO SCH (09:34)
[2023-07-21] MEDS: HEPARIN NA (PORCINE) 5,000 UNITS/ML 1ML VIAL SQ SCH ×2 (09:34→22:06)
[2023-07-21 10:02] LABS: ANISOCYTOSIS 1+; MACROCYTOSIS 0
[2023-07-21 10:09] LABS: ALBUMIN 2.2 g/dl (3.4-5.0); CALCIUM 7.6 mg/dL (8.5-10.1); CREATININE 0.4 mg/dL (0.55-1.3)
[2023-07-21 10:10] LABS: BLOOD UREA NITROGEN 18.2 mg/dL (7-18)
[2023-07-21 10:11] LABS: BILIRUBIN,TOTAL 0.6 mg/dL (0.2-1); MAGNESIUM 2.1 mg/dL (1.8-2.4); TOT PROT 5.3 g/dl (6.4-8.2)
[2023-07-21] MEDS ORDERED: POTASSIUM CHLORIDE TABS 20 MEQ TABLET.ER (FP) PO SCH (11:45)
[2023-07-21] MEDS: EZETIMIBE 10 MG TABLET (FP) PO SCH (22:05)
[2023-07-21] MEDS: ATORVASTATIN CA 20 MG TABLET (FP) PO SCH (22:05)
[2023-07-22] MEDS: ACETAMINOPHEN 500 MG TABLET (FP) PO SCH ×3 (02:40→18:11)
[2023-07-22] MEDS: TAMSULOSIN HCL 0.4 MG CAP PO SCH (09:02)
[2023-07-22 09:07] LABS: BASO % 0.3 % (0-2.0); EOS % 2.2 % (0-4.5); HEMOGLOBIN 8.7 GM/dL (10.7-15.3); LYMPH % 6.4 % (8-40); MCH 29.8 pg (25.7-33.7); MCHC 33.7 g/dl (32.0-36.0); MEAN CELL VOLUME 88.4 fl (80-96); MEAN PLT VOLUME 7.9 fl (7.5-11.1); MONO % 7.6 % (3.8-10.2); NEUT % 83.5 % (42.8-82.8); PLATELET COUNT 282 10^3/uL (134-434); RBC 2.94 M/mm3 (3.60-5.2); WHITE BLOOD COUNT 7.2 K/mm3 (4.0-10.0)
[2023-07-22 09:31] LABS: POTASSIUM 3.3 mmol/L (3.5-5.1)
[2023-07-22 09:33] LABS: CALCIUM 7.5 mg/dL (8.5-10.1)
[2023-07-22 09:34] LABS: ALBUMIN 2.2 g/dl (3.4-5.0); BLOOD UREA NITROGEN 9.8 mg/dL (7-18); MAGNESIUM 1.9 mg/dL (1.8-2.4)
[2023-07-22 09:37] LABS: CREATININE 0.3 mg/dL (0.55-1.3)
[2023-07-22 09:38] LABS: BILIRUBIN,TOTAL 0.6 mg/dL (0.2-1); TOT PROT 5.4 g/dl (6.4-8.2)
[2023-07-22] MEDS: HEPARIN NA (PORCINE) 5,000 UNITS/ML 1ML VIAL SQ SCH ×2 (09:41→21:31)
[2023-07-22] MEDS: ATORVASTATIN CA 20 MG TABLET (FP) PO SCH (21:31)
[2023-07-22] MEDS: EZETIMIBE 10 MG TABLET (FP) PO SCH (21:31)
[2023-07-23] MEDS: TAMSULOSIN HCL 0.4 MG CAP PO SCH (09:04)
[2023-07-23] MEDS: HEPARIN NA (PORCINE) 5,000 UNITS/ML 1ML VIAL SQ SCH ×2 (09:04→22:01)
[2023-07-23 09:49] LABS: BASO % 0.1 % (0-2.0); EOS % 2.6 % (0-4.5); HEMATOCRIT 26.4 % (32.4-45.2); HEMOGLOBIN 8.9 GM/dL (10.7-15.3); LYMPH % 8.2 % (8-40); MCH 29.6 pg (25.7-33.7); MCHC 33.6 g/dl (32.0-36.0); MEAN CELL VOLUME 88.1 fl (80-96); MEAN PLT VOLUME 7.5 fl (7.5-11.1); MONO % 7.6 % (3.8-10.2); NEUT % 81.5 % (42.8-82.8); PLATELET COUNT 319 10^3/uL (134-434); RDW 15.9 % (11.6-15.6); WHITE BLOOD COUNT 7.3 K/mm3 (4.0-10.0)
[2023-07-23 10:30] LABS: ALBUMIN 2.3 g/dl (3.4-5.0); BLOOD UREA NITROGEN 10.2 mg/dL (7-18); CALCIUM 7.6 mg/dL (8.5-10.1); MAGNESIUM 1.8 mg/dL (1.8-2.4)
[2023-07-23 10:33] LABS: BILIRUBIN,TOTAL 0.6 mg/dL (0.2-1); CREATININE 0.3 mg/dL (0.55-1.3); TOT PROT 5.5 g/dl (6.4-8.2)
[2023-07-23] MEDS: MULTIVITAMINS (DAILY MVI) TABLET (FP) PO SCH (11:33)
[2023-07-23] MEDS ORDERED: POTASSIUM CHLORIDE ORAL LIQUID 20 MEQ/15 ML PO ONE (12:30)
[2023-07-23] MEDS: ACETAMINOPHEN 325 MG TABLET (FP) PO PRN (22:01)
[2023-07-23] MEDS: ATORVASTATIN CA 20 MG TABLET (FP) PO SCH (22:02)
[2023-07-23] MEDS: EZETIMIBE 10 MG TABLET (FP) PO SCH (22:02)
[2023-07-23] MEDS: POTASSIUM CHLORIDE TABS 20 MEQ TABLET.ER (FP) PO SCH (22:02)
[2023-07-24] MEDS: TAMSULOSIN HCL 0.4 MG CAP PO SCH (08:31)
[2023-07-24 09:25] LABS: BASO % 0.5 % (0-2.0); EOS % 1.7 % (0-4.5); HEMATOCRIT 26.7 % (32.4-45.2); LYMPH % 8.8 % (8-40); MCH 29.7 pg (25.7-33.7); MCHC 33.8 g/dl (32.0-36.0); MEAN PLT VOLUME 7.7 fl (7.5-11.1); PLATELET COUNT 385 10^3/uL (134-434); RBC 3.03 M/mm3 (3.60-5.2); RDW 15.8 % (11.6-15.6); WHITE BLOOD COUNT 9.7 K/mm3 (4.0-10.0)
[2023-07-24 10:04] LABS: POTASSIUM 3.7 mmol/L (3.5-5.1)
[2023-07-24 10:07] LABS: CALCIUM 7.6 mg/dL (8.5-10.1)
[2023-07-24 10:08] LABS: ALBUMIN 2.2 g/dl (3.4-5.0); BLOOD UREA NITROGEN 8.7 mg/dL (7-18)
[2023-07-24 10:11] LABS: CREATININE 0.3 mg/dL (0.55-1.3)
[2023-07-24] MEDS: MULTIVITAMINS (DAILY MVI) TABLET (FP) PO SCH (10:12)
[2023-07-24] MEDS: POTASSIUM CHLORIDE TABS 20 MEQ TABLET.ER (FP) PO SCH ×2 (10:12→21:03)
[2023-07-24] MEDS: HEPARIN NA (PORCINE) 5,000 UNITS/ML 1ML VIAL SQ SCH ×2 (10:12→21:03)
[2023-07-24 10:13] LABS: BILIRUBIN,TOTAL 0.5 mg/dL (0.2-1); TOT PROT 5.4 g/dl (6.4-8.2)
[2023-07-24] MEDS: EZETIMIBE 10 MG TABLET (FP) PO SCH (21:02)
[2023-07-24] MEDS: ATORVASTATIN CA 20 MG TABLET (FP) PO SCH (21:02)
[2023-07-24] MEDS: ACETAMINOPHEN 325 MG TABLET (FP) PO PRN (21:03)
[2023-07-25] MEDS: POTASSIUM CHLORIDE TABS 20 MEQ TABLET.ER (FP) PO SCH ×2 (09:02→22:28)
[2023-07-25] MEDS: TAMSULOSIN HCL 0.4 MG CAP PO SCH (09:02)
[2023-07-25] MEDS: MULTIVITAMINS (DAILY MVI) TABLET (FP) PO SCH (09:02)
[2023-07-25] MEDS: ACETAMINOPHEN 325 MG TABLET (FP) PO PRN ×2 (09:03→22:29)
[2023-07-25] MEDS: HEPARIN NA (PORCINE) 5,000 UNITS/ML 1ML VIAL SQ SCH ×2 (09:03→22:28)
[2023-07-25 13:42] VITALS: RESP 18
[2023-07-25] MEDS: ATORVASTATIN CA 20 MG TABLET (FP) PO SCH (22:27)
[2023-07-25] MEDS: EZETIMIBE 10 MG TABLET (FP) PO SCH (22:28)
[2023-07-26] MEDS: TAMSULOSIN HCL 0.4 MG CAP PO SCH (09:15)
[2023-07-26] MEDS: POTASSIUM CHLORIDE TABS 20 MEQ TABLET.ER (FP) PO SCH (09:16)
[2023-07-26] MEDS: HEPARIN NA (PORCINE) 5,000 UNITS/ML 1ML VIAL SQ SCH (09:16)
[2023-07-26] MEDS: MULTIVITAMINS (DAILY MVI) TABLET (FP) PO SCH (09:16)
[2023-07-26 16:03] VITALS: BP 103/60; PULSE 82; TEMP 98.5
== END 2023-07-26 19:15 | disposition home health service (06) | DRG 330 ==
LOC: J2C 07-16 04:02 → J8W 07-16 17:45
PROVIDERS: ADMIT Surgery; ATTEND Nurse Practitioner Family
PROC: 0WQF0ZZ Repair Abdominal Wall, Open Approach (ICD-10-PCS; 2023-07-16)
PROC: 0DBL0ZZ Excision of Transverse Colon, Open Approach (ICD-10-PCS; 2023-07-16)
PROC: 0DBB0ZZ Excision of Ileum, Open Approach (ICD-10-PCS; principal; 2023-07-16 08:00)
PROC: 0WUF0JZ Supplement Abdominal Wall with Synthetic Substitute, Open Approach (ICD-10-PCS; 2023-07-16 08:00)
DX: Z43.2 Encounter for attention to ileostomy (principal); E46 Unspecified protein-calorie malnutrition; Z68.1 Body mass index [BMI] 19.9 or less, adult; J98.11 Atelectasis; E78.5 Hyperlipidemia, unspecified; K76.0 Fatty (change of) liver, not elsewhere classified; R50.82 Postprocedural fever; R33.9 Retention of urine, unspecified; N73.6 Female pelvic peritoneal adhesions (postinfective)
CPT/HCPCS: 36415; 71045-TC-FY; 80048; 80053; 83735; 85025; 86140; 86850; 86900; 86901; 87040; 87086; 88304-TC; 88305-TC; 88307-TC; 94760; 97116-GP; 97162-GP; C1781; G0480; J1644

== ENCOUNTER 2024-03-15 11:38 | Day surgery (SDC) | payer BC, MEDICARE ==
[2024-03-13 12:09] VITALS: BMI 20.5
[2024-03-15] MEDS ORDERED: BSS (NA/CA/MG/K) BALANCED SALT SOLUTION OPHTH SOLN 15 ML BOTTLE ONE (12:03)
[2024-03-15] MEDS ORDERED: LIDOCAINE 1% P/F 10 MG/ML VIAL ONE (12:03)
[2024-03-15] MEDS ORDERED: NEO/POLYMYX B SULF/DEXAMETH OPHTHALMIC 5ML BOTTLE ONE (12:03)
[2024-03-15] MEDS ORDERED: TETRACAINE 0.5% OPHTH SOLN 2 ML BOTTLE ONE (12:03)
[2024-03-15] MEDS ORDERED: CARBACHOL 0.01% INTRA-OCULAR 1.5 ML VIAL ONE (12:03)
[2024-03-15 12:22] VITALS: RESP 18; TEMP 97.2
[2024-03-15] MEDS: TROPICAMIDE 1% OPHTH SOLN 15 ML BOTTLE ONE (12:30)
[2024-03-15] MEDS: CYCLOPENTOLATE 2% OPHTH SOLN 2 ML BOTTLE ONE (12:30)
[2024-03-15] MEDS: CIPROFLOXACIN 0.3% EYE DROPS 5 ML BOTTLE ONE (12:30)
[2024-03-15] MEDS: PHENYLEPHRINE 2.5% OPTHALMIC DROP 2ML BOTTLE ONE (12:30)
[2024-03-15] MEDS ORDERED: MIDAZOLAM HCL 2 MG/2 ML SINGLE DOSE VIAL ONE (14:06)
[2024-03-15 15:19] VITALS: BP 112/74; PULSE 69
== END 2024-03-15 15:15 | disposition home or self-care (01) ==
LOC: FASU 11:38
PROVIDERS: ATTEND Ophthalmology
PROC: 08RK3JZ Replacement of Left Lens with Synthetic Substitute, Percutaneous Approach (ICD-10-PCS; principal; 2024-03-15 14:29)
DX: H26.8 Other specified cataract (principal)
CPT/HCPCS: 66984; V2632

== ENCOUNTER 2024-10-10 03:50 | Inpatient (IN) | payer BC, OTHER ==
[2024-10-09 15:26] VITALS: BMI 24.7
[2024-10-10] MEDS ORDERED: ROCURONIUM BROMIDE 50 MG/5 ML SYRINGE ONE ×4 (08:49→12:13)
[2024-10-10] MEDS ORDERED: PROPOFOL 20 ML ONE (08:49)
[2024-10-10] MEDS ORDERED: MIDAZOLAM HCL 2 MG/2 ML SINGLE DOSE VIAL ONE (08:50)
[2024-10-10] MEDS ORDERED: HEPARIN NA (PORCINE) 5,000 UNITS/ML 1ML VIAL ONE (08:59)
[2024-10-10] MEDS: AZTREONAM 1 GM VIAL (RESTRICTED TO ID) IVPB ONE ×2 (09:01→13:00)
[2024-10-10] MEDS: CLINDAMYCIN 300 MG PREMIX BAG IVPB ONE (09:05)
[2024-10-10] MEDS ORDERED: INDOCYANINE GREEN 25 MG/10 ML VIAL IVPUSH ONE (09:21)
[2024-10-10] MEDS ORDERED: DEXAMETHASONE SOD PHOSPHATE 4 MG/1 ML VIAL ONE (09:33)
[2024-10-10] MEDS ORDERED: ONDANSETRON 4 MG/2 ML VIAL ONE ×2 (09:33→15:22)
[2024-10-10] MEDS ORDERED: ACETAMINOPHEN INJECTION 100 ML ONE ×2 (09:57→16:55)
[2024-10-10] MEDS ORDERED: DEXMEDETOMIDINE HCL 200 MCG/2 ML IVPB ONE (12:39)
[2024-10-10] MEDS ORDERED: SUGAMMADEX SODIUM 200 MG/2 ML VIAL ONE (13:15)
[2024-10-10] MEDS ORDERED: BACITRACIN ZINC 15 GM TUBE TOPICAL OINTMENT ONE (13:25)
[2024-10-10] MEDS: BACITRACIN ZINC 15 GM TUBE TOPICAL OINTMENT TP ONE (14:11)
[2024-10-10] MEDS ORDERED: ONDANSETRON 4 MG/2 ML VIAL IVPUSH PRN (14:26)
[2024-10-10] MEDS ORDERED: HYDROmorphone *PCA* 10MG/50ML DISP.SYRIN ONE (14:32)
[2024-10-10] MEDS: HYDROmorphone *PCA* 10MG/50ML DISP.SYRIN PCA SCH (14:49)
[2024-10-10] MEDS: LACTATED RINGERS SOLUTION 1,000 ML IV SCH ×2 (15:11→19:06)
[2024-10-10] MEDS: ONDANSETRON 4 MG/2 ML VIAL IVPUSH PRN (15:26)
[2024-10-10] MEDS ORDERED: CLINDAMYCIN 600MG PREMIX IVPB 600 MG/50 ML BAG IVPB ONE (16:56)
[2024-10-10] MEDS: ACETAMINOPHEN 1000 MG/100 ML BAG IVPB SCH (17:11)
[2024-10-10] MEDS: CLINDAMYCIN 600MG PREMIX IVPB 600 MG/50 ML BAG IVPB SCH (17:15)
[2024-10-10] MEDS: CLINDAMYCIN 300 MG PREMIX IVPB 300 MG/50 ML BAG IVPB ONE (19:05)
[2024-10-10] MEDS: AZTREONAM 1 GM in DEXTROSE 5%-WATER - 50 ML IVPB ONE (19:05)
[2024-10-10] MEDS: AZTREONAM 1 GM in SODIUM CHLORIDE 50 ML IVPB ONE (19:05)
[2024-10-10] MEDS: AZTREONAM 1 GM in DEXTROSE 5%-WATER - 50 ML IVPB SCH (21:09)
[2024-10-11 08:31] LABS: BASO % 0.1 % (0-2.0); HEMATOCRIT 34.6 % (32.4-45.2); HEMOGLOBIN 11.9 GM/dL (10.7-15.3); LYMPH % 6.8 % (8-40); MCH 30.4 pg (25.7-33.7); MCHC 34.3 g/dl (32.0-36.0); MEAN CELL VOLUME 88.7 fl (80-96); MEAN PLT VOLUME 8.8 fl (7.5-11.1); MONO % 8.5 % (3.8-10.2); NEUT % 84.6 % (42.8-82.8); PLATELET COUNT 234 10^3/uL (134-434); RDW 14.7 % (11.6-15.6); WHITE BLOOD COUNT 10.3 K/mm3 (4.0-10.0)
[2024-10-11 08:42] LABS: POTASSIUM 4.1 mmol/L (3.5-5.1)
[2024-10-11 08:47] LABS: BLOOD UREA NITROGEN 14.1 mg/dL (7-18)
[2024-10-11 08:48] LABS: CALCIUM 8.5 mg/dL (8.5-10.1); MAGNESIUM 1.5 mg/dL (1.8-2.4)
[2024-10-11 08:51] LABS: CREATININE 0.6 mg/dL (0.55-1.3); PHOSPHOROUS 3.3 mg/dL (2.5-4.9)
[2024-10-11] MEDS ORDERED: MAGNESIUM SULF 50% (8.12 MEQ/2 ML-1 GM VIAL) IVPB ONE (09:30)
[2024-10-11] MEDS: ENOXAPARIN NA (PORCINE) 40 MG/0.4 ML DISP.SYRIN SQ SCH (10:32)
[2024-10-11] MEDS: MAGNESIUM 2GM/50ML STERILE WATER IVPB IVPB ONE (11:43)
[2024-10-12 08:38] LABS: BASO % 0.3 % (0-2.0); EOS % 0.2 % (0-4.5); HEMOGLOBIN 9.8 GM/dL (10.7-15.3); LYMPH % 6.1 % (8-40); MCH 29.4 pg (25.7-33.7); MCHC 32.8 g/dl (32.0-36.0); MEAN CELL VOLUME 89.6 fl (80-96); MEAN PLT VOLUME 8.9 fl (7.5-11.1); NEUT % 86.4 % (42.8-82.8); PLATELET COUNT 181 10^3/uL (134-434); RBC 3.35 M/mm3 (3.60-5.2); RDW 14.6 % (11.6-15.6); WHITE BLOOD COUNT 10.2 K/mm3 (4.0-10.0)
[2024-10-12 08:53] LABS: POTASSIUM 3.5 mmol/L (3.5-5.1)
[2024-10-12 08:55] LABS: CALCIUM 8.3 mg/dL (8.5-10.1); MAGNESIUM 1.9 mg/dL (1.8-2.4)
[2024-10-12 08:58] LABS: PHOSPHOROUS 1.7 mg/dL (2.5-4.9)
[2024-10-12 08:59] LABS: CREATININE 0.4 mg/dL (0.55-1.3)
[2024-10-12] MEDS ORDERED: HYDROmorphone HCL CARPU-JECT 2 MG/1 ML DISP.SYRIN IVPB PRN (10:39)
[2024-10-12] MEDS: POTASSIUM PHOSPHATE 30 MM in SODIUM CHLORIDE 500 ML IVPB ONE (12:22)
[2024-10-12] MEDS: AZTREONAM 1 GM in DEXTROSE 5%-WATER - 50 ML IVPB SCH (15:00)
[2024-10-12] MEDS: IRON SUCROSE INJECTION 100 MG in SODIUM CHLORIDE 95 ML IVPB ONE (16:49)
[2024-10-13 09:43] LABS: BASO % 0.2 % (0-2.0); EOS % 0.5 % (0-4.5); HEMATOCRIT 27.4 % (32.4-45.2); HEMOGLOBIN 9.3 GM/dL (10.7-15.3); LYMPH % 7.1 % (8-40); MCH 29.9 pg (25.7-33.7); MCHC 33.8 g/dl (32.0-36.0); MEAN CELL VOLUME 88.7 fl (80-96); MEAN PLT VOLUME 8.1 fl (7.5-11.1); MONO % 4.9 % (3.8-10.2); NEUT % 87.3 % (42.8-82.8); PLATELET COUNT 211 10^3/uL (134-434); RBC 3.09 M/mm3 (3.60-5.2); RDW 14.6 % (11.6-15.6); WHITE BLOOD COUNT 9.7 K/mm3 (4.0-10.0)
[2024-10-13 10:03] LABS: POTASSIUM 3.4 mmol/L (3.5-5.1)
[2024-10-13 10:25] LABS: CALCIUM 8.5 mg/dL (8.5-10.1)
[2024-10-13 10:26] LABS: BLOOD UREA NITROGEN 9.6 mg/dL (7-18); MAGNESIUM 1.9 mg/dL (1.8-2.4)
[2024-10-13 10:29] LABS: CREATININE 0.4 mg/dL (0.55-1.3); PHOSPHOROUS 2.4 mg/dL (2.5-4.9)
[2024-10-13] MEDS: AMINO ACIDS 4.25%/D5W 1,000 ML IV SCH (10:49)
[2024-10-13] MEDS: KCL 10 MEQ IVPB 10 MEQ/100 ML INFUS.BAG IVPB SCH (10:50)
[2024-10-13] MEDS: IRON SUCROSE INJECTION 100 MG in SODIUM CHLORIDE 95 ML IVPB ONE (13:33)
[2024-10-13] MEDS: POTASSIUM CHLORIDE 20 MEQ in AMINO ACIDS 4.25%/D5W 1,000 ML IV SCH (15:57)
[2024-10-13] MEDS: LACTATED RINGERS SOLUTION 1,000 ML IV SCH (16:00)
[2024-10-13] MEDS: ATORVASTATIN CA 20 MG TABLET (FP) PO SCH (22:11)
[2024-10-14 11:08] LABS: BASO % 0.3 % (0-2.0); EOS % 1.8 % (0-4.5); HEMATOCRIT 24.7 % (32.4-45.2); HEMOGLOBIN 8.4 GM/dL (10.7-15.3); LYMPH % 10.9 % (8-40); MCH 30.3 pg (25.7-33.7); MCHC 33.9 g/dl (32.0-36.0); MEAN CELL VOLUME 89.5 fl (80-96); MEAN PLT VOLUME 8.7 fl (7.5-11.1); MONO % 7.8 % (3.8-10.2); NEUT % 79.2 % (42.8-82.8); PLATELET COUNT 220 10^3/uL (134-434); RBC 2.77 M/mm3 (3.60-5.2); RDW 14.5 % (11.6-15.6); WHITE BLOOD COUNT 6.4 K/mm3 (4.0-10.0)
[2024-10-14 11:10] LABS: POTASSIUM 3.1 mmol/L (3.5-5.1)
[2024-10-14 11:11] LABS: BLOOD UREA NITROGEN 9.6 mg/dL (7-18)
[2024-10-14 11:14] LABS: CREATININE 0.4 mg/dL (0.55-1.3); PHOSPHOROUS 2.1 mg/dL (2.5-4.9)
[2024-10-14 11:16] LABS: CALCIUM 8.2 mg/dL (8.5-10.1)
[2024-10-14 11:17] LABS: MAGNESIUM 1.6 mg/dL (1.8-2.4)
[2024-10-14] MEDS: KCL 10 MEQ IVPB 10 MEQ/100 ML INFUS.BAG IVPB SCH (12:30)
[2024-10-14] MEDS: MAGNESIUM 2GM/50ML STERILE WATER IVPB IVPB ONE (13:59)
[2024-10-14] MEDS: MULTIVITAMINS (DAILY MVI) TABLET (FP) PO SCH (15:36)
[2024-10-14] MEDS: NAPH,MB-DB/K PH,MBDB POWDER PACKET PO SCH (21:27)
[2024-10-14] MEDS: POTASSIUM CHLORIDE TABS 20 MEQ TABLET.ER (FP) PO SCH (21:27)
[2024-10-14] MEDS: IRON SUCROSE INJECTION 200 MG in SODIUM CHLORIDE 100 ML IVPB ONE (21:28)
[2024-10-15] MEDS: ACETAMINOPHEN 1000 MG/100 ML BAG IVPB ONE (01:12)
[2024-10-15 10:21] LABS: BASO % 0.3 % (0-2.0); EOS % 1.8 % (0-4.5); HEMATOCRIT 26.6 % (32.4-45.2); HEMOGLOBIN 9.1 GM/dL (10.7-15.3); LYMPH % 9.9 % (8-40); MCH 30.4 pg (25.7-33.7); MCHC 34.4 g/dl (32.0-36.0); MEAN CELL VOLUME 88.4 fl (80-96); MEAN PLT VOLUME 8.2 fl (7.5-11.1); MONO % 8.8 % (3.8-10.2); NEUT % 79.2 % (42.8-82.8); PLATELET COUNT 267 10^3/uL (134-434); RBC 3.01 M/mm3 (3.60-5.2); RDW 14.8 % (11.6-15.6)
[2024-10-15 10:37] LABS: POTASSIUM 3.3 mmol/L (3.5-5.1)
[2024-10-15 10:40] LABS: CALCIUM 7.9 mg/dL (8.5-10.1)
[2024-10-15 10:43] LABS: CREATININE 0.4 mg/dL (0.55-1.3); MAGNESIUM 1.6 mg/dL (1.8-2.4); PHOSPHOROUS 1.8 mg/dL (2.5-4.9)
[2024-10-15] MEDS: POTASSIUM CHLORIDE ORAL LIQUID 20 MEQ/15 ML PO ONE ×2 (11:14→21:21)
[2024-10-15] MEDS: MAGNESIUM OXIDE 400 MG TABLET (FP) PO ONE (11:25)
[2024-10-15] MEDS: POTASSIUM CHLORIDE 20 MEQ in AMINO ACIDS 4.25%/D5W 1,000 ML IV SCH (12:56)
[2024-10-15] MEDS: POTASSIUM PHOSPHATE 15 MM in SODIUM CHLORIDE 250 ML IVPB ONE (14:20)
[2024-10-15 14:41] LABS: EPI CELLS 8 /uL (0-25.1); HYALINE CASTS 0 /uL (0-3.1); PH,URINE >= 9.0 (5.0-8.0); URINE APPEARANCE CLEAR; URINE BACTERIA 3 /uL (0-1359); URINE BILIRUBIN NEGATIVE (NEGATIVE); URINE COLOR YELLOW; URINE GLUCOSE (UA) NEGATIVE (NEGATIVE); URINE KETONE NEGATIVE (NEGATIVE); URINE LEUK ESTERASE NEGATIVE (NEGATIVE); URINE NITRITE NEGATIVE (NEGATIVE); URINE PROTEIN 1+ (NEGATIVE); URINE RBC 1082 /uL (0-23.9); URINE UROBILINOGEN 0.2 mg/dL (0.2-1.0); URINE WBC 11 /uL (0-25.8)
[2024-10-15] MEDS: KETOROLAC TROMETHAMINE 15 MG/ML VIAL IVPUSH PRN (17:14)
[2024-10-15] MEDS: IRON SUCROSE INJECTION 200 MG in SODIUM CHLORIDE 100 ML IVPB ONE (21:21)
[2024-10-15 21:23] LABS: MAGNESIUM 1.7 mg/dL (1.8-2.4)
[2024-10-15 21:26] LABS: PHOSPHOROUS 2.4 mg/dL (2.5-4.9)
[2024-10-16] MEDS: ACETAMINOPHEN 325 MG TABLET (FP) PO ONE (03:40)
[2024-10-16 11:42] LABS: BASO % 0.3 % (0-2.0); EOS % 1.1 % (0-4.5); HEMATOCRIT 29.9 % (32.4-45.2); HEMOGLOBIN 10.4 GM/dL (10.7-15.3); LYMPH % 5.8 % (8-40); MCH 30.5 pg (25.7-33.7); MCHC 34.8 g/dl (32.0-36.0); MEAN CELL VOLUME 87.5 fl (80-96); MEAN PLT VOLUME 9.4 fl (7.5-11.1); NEUT % 87.8 % (42.8-82.8); PLATELET COUNT 166 10^3/uL (134-434); RBC 3.42 M/mm3 (3.60-5.2); RDW 15.1 % (11.6-15.6); WHITE BLOOD COUNT 13.8 K/mm3 (4.0-10.0)
[2024-10-16 12:32] LABS: POTASSIUM 3.5 mmol/L (3.5-5.1)
[2024-10-16 12:37] LABS: BLOOD UREA NITROGEN 7.7 mg/dL (7-18); CALCIUM 8.5 mg/dL (8.5-10.1); MAGNESIUM 1.9 mg/dL (1.8-2.4)
[2024-10-16 12:40] LABS: CREATININE 0.4 mg/dL (0.55-1.3); PHOSPHOROUS 2.4 mg/dL (2.5-4.9)
[2024-10-16 13:21] LABS: INR 1.29 (0.83-1.09); PROTHROMBIN TIME (PATIENT) 14.5 SEC (9.7-13.0)
[2024-10-16] MEDS ORDERED: MIDAZOLAM HCL 2 MG/2 ML SINGLE DOSE VIAL ONE (14:09)
[2024-10-16] MEDS ORDERED: FENTANYL CITRATE/PF 50 MCG/ML VIAL ONE (14:09)
[2024-10-16] MEDS: SODIUM CHLORIDE 500 ML IV ONE (14:50)
[2024-10-16] MEDS: FENTANYL CITRATE/PF 50 MCG/ML VIAL IVPUSH ONE (14:50)
[2024-10-16] MEDS: ERTAPENEM SODIUM 1 GM in SODIUM CHLORIDE 50 ML IVPB SCH (21:27)
[2024-10-17 09:58] LABS: POTASSIUM 3.4 mmol/L (3.5-5.1)
[2024-10-17 09:59] LABS: BASO % 0.3 % (0-2.0); EOS % 1.4 % (0-4.5); HEMATOCRIT 25.6 % (32.4-45.2); HEMOGLOBIN 8.4 GM/dL (10.7-15.3); MCH 29.2 pg (25.7-33.7); MCHC 32.7 g/dl (32.0-36.0); MEAN CELL VOLUME 89.2 fl (80-96); MEAN PLT VOLUME 7.6 fl (7.5-11.1); MONO % 5.4 % (3.8-10.2); NEUT % 85.9 % (42.8-82.8); PLATELET COUNT 331 10^3/uL (134-434); RBC 2.88 M/mm3 (3.60-5.2); RDW 14.8 % (11.6-15.6); WHITE BLOOD COUNT 12.2 K/mm3 (4.0-10.0)
[2024-10-17 10:01] LABS: CALCIUM 8.1 mg/dL (8.5-10.1); MAGNESIUM 1.9 mg/dL (1.8-2.4)
[2024-10-17 10:05] LABS: CREATININE 0.4 mg/dL (0.55-1.3); PHOSPHOROUS 2.7 mg/dL (2.5-4.9)
[2024-10-17 10:20] LABS: CHOLESTEROL 85 mg/dL (50-200); LDL CHOLESTEROL (ONLY SJRH) 53 mg/dL (5-100)
[2024-10-17 10:22] LABS: HDL CHOLESTEROL 12 mg/dL (40-60)
[2024-10-17] MEDS: MAGNESIUM OXIDE 400 MG TABLET (FP) PO ONE (11:08)
[2024-10-17] MEDS: POTASSIUM CHLORIDE TABS 20 MEQ TABLET.ER (FP) PO ONE (11:08)
[2024-10-17] MEDS: POTASSIUM CHLORIDE ORAL LIQUID 20 MEQ/15 ML PO ONE (15:10)
[2024-10-17] MEDS: ACETAMINOPHEN 325 MG TABLET (FP) PO ONE (23:52)
[2024-10-18 09:27] LABS: BASO % 0.4 % (0-2.0); EOS % 2.2 % (0-4.5); HEMATOCRIT 27.3 % (32.4-45.2); HEMOGLOBIN 8.8 GM/dL (10.7-15.3); LYMPH % 6.8 % (8-40); MCH 29.2 pg (25.7-33.7); MCHC 32.4 g/dl (32.0-36.0); MEAN CELL VOLUME 90.1 fl (80-96); MONO % 4.7 % (3.8-10.2); NEUT % 85.9 % (42.8-82.8); PLATELET COUNT 369 10^3/uL (134-434); RBC 3.03 M/mm3 (3.60-5.2); RDW 15.3 % (11.6-15.6); WHITE BLOOD COUNT 13.1 K/mm3 (4.0-10.0)
[2024-10-18 09:49] LABS: CALCIUM 8.2 mg/dL (8.5-10.1); CREATININE 0.3 mg/dL (0.55-1.3); PHOSPHOROUS 2.6 mg/dL (2.5-4.9)
[2024-10-19 09:16] LABS: BASO % 0.3 % (0-2.0); EOS % 2.6 % (0-4.5); HEMATOCRIT 25.8 % (32.4-45.2); HEMOGLOBIN 8.4 GM/dL (10.7-15.3); LYMPH % 7.8 % (8-40); MCH 29.5 pg (25.7-33.7); MCHC 32.7 g/dl (32.0-36.0); MEAN CELL VOLUME 90.2 fl (80-96); MEAN PLT VOLUME 7.9 fl (7.5-11.1); MONO % 6.8 % (3.8-10.2); NEUT % 82.5 % (42.8-82.8); PLATELET COUNT 432 10^3/uL (134-434); RBC 2.86 M/mm3 (3.60-5.2); RDW 15.5 % (11.6-15.6); WHITE BLOOD COUNT 9.8 K/mm3 (4.0-10.0)
[2024-10-19 09:44] LABS: POTASSIUM 4.1 mmol/L (3.5-5.1)
[2024-10-19 09:52] LABS: ALBUMIN 2.1 g/dl (3.4-5.0); BLOOD UREA NITROGEN 16.7 mg/dL (7-18)
[2024-10-19 09:55] LABS: CALCIUM 8.5 mg/dL (8.5-10.1)
[2024-10-19 09:57] LABS: BILIRUBIN,TOTAL 0.5 mg/dL (0.2-1)
[2024-10-19 09:59] LABS: CREATININE 0.4 mg/dL (0.55-1.3)
[2024-10-19 10:01] LABS: PHOSPHOROUS 3.3 mg/dL (2.5-4.9); TOT PROT 5.4 g/dl (6.4-8.2)
[2024-10-19] MEDS: SODIUM CHLORIDE 1,000 ML IV SCH (16:15)
[2024-10-20 09:10] LABS: BASO % 0.6 % (0-2.0); EOS % 2.8 % (0-4.5); HEMATOCRIT 25.1 % (32.4-45.2); HEMOGLOBIN 8.4 GM/dL (10.7-15.3); LYMPH % 12.6 % (8-40); MCH 30.1 pg (25.7-33.7); MCHC 33.6 g/dl (32.0-36.0); MEAN CELL VOLUME 89.6 fl (80-96); MEAN PLT VOLUME 7.9 fl (7.5-11.1); MONO % 8.1 % (3.8-10.2); NEUT % 75.9 % (42.8-82.8); PLATELET COUNT 488 10^3/uL (134-434); RDW 15.7 % (11.6-15.6); WHITE BLOOD COUNT 6.5 K/mm3 (4.0-10.0)
[2024-10-20 09:31] LABS: POTASSIUM 4.2 mmol/L (3.5-5.1)
[2024-10-20 09:39] LABS: ALBUMIN 2.1 g/dl (3.4-5.0)
[2024-10-20 09:41] LABS: BILIRUBIN,TOTAL 0.5 mg/dL (0.2-1); CALCIUM 8.3 mg/dL (8.5-10.1); TOT PROT 5.3 g/dl (6.4-8.2)
[2024-10-20 09:42] LABS: BLOOD UREA NITROGEN 13.7 mg/dL (7-18)
[2024-10-20 09:43] LABS: CREATININE 0.4 mg/dL (0.55-1.3)
[2024-10-21] MEDS: metroNIDAZOLE 250 MG TABLET PO SCH (09:48)
[2024-10-21 11:14] VITALS: RESP 16
[2024-10-21 11:15] VITALS: BP 94/58; PULSE 102; TEMP 97.3
== END 2024-10-21 11:18 | disposition home health service (06) | DRG 660 ==
LOC: JASU-SURG 03:50 → J2C 14:31 → J8W 18:00
PROVIDERS: ADMIT Internal Medicine; ATTEND Internal Medicine
PROC: 0DNW0ZZ Release Peritoneum, Open Approach (ICD-10-PCS; 2024-10-10)
PROC: 0WQF0ZZ Repair Abdominal Wall, Open Approach (ICD-10-PCS; 2024-10-10)
PROC: 0J980ZZ Drainage of Abdomen Subcutaneous Tissue and Fascia, Open Approach (ICD-10-PCS; 2024-10-10)
PROC: 0T788DZ Dilation of Bilateral Ureters with Intraluminal Device, Via Natural or Artificial Opening Endoscopic (ICD-10-PCS; principal; 2024-10-10 08:30)
PROC: 0DTB0ZZ Resection of Ileum, Open Approach (ICD-10-PCS; 2024-10-10 08:30)
PROC: 0W9G30Z Drainage of Peritoneal Cavity with Drainage Device, Percutaneous Approach (ICD-10-PCS; 2024-10-16)
DX: N32.1 Vesicointestinal fistula (principal); E46 Unspecified protein-calorie malnutrition; J90 Pleural effusion, not elsewhere classified; E87.1 Hypo-osmolality and hyponatremia; J98.11 Atelectasis; K43.9 Ventral hernia without obstruction or gangrene; K66.0 Peritoneal adhesions (postprocedural) (postinfection); D72.829 Elevated white blood cell count, unspecified; E78.5 Hyperlipidemia, unspecified; K76.0 Fatty (change of) liver, not elsewhere classified; D50.9 Iron deficiency anemia, unspecified; Z68.24 Body mass index [BMI] 24.0-24.9, adult; E87.6 Hypokalemia; E86.0 Dehydration
CPT/HCPCS: 36415; 49406; 71045-TC-FY; 71275-TC; 74177-TC; 80048; 80053; 80061; 81003; 83540; 83550; 83735; 84100; 84132; 85025; 85610; 86140; 86850; 86900; 86901; 87040; 87070; 87075; 87086; 87102; 87116; 87205; 87206; 87210; 88305-TC; 88307-TC; 93005; 93010; 94760; 97116-GP; 97161-GP; J0131; J1644; J1756; Q9967